=== PATIENT | female | born 1990 | race Hispanic/Latino ===

== ENCOUNTER 2017-11-28 09:37 | Emergency (ER) | payer OTHER ==
[~2017-11-28] VITALS: Ht 152.4 cm; Wt 63.1 kg
[2017-11-28 10:09] LABS: HEMOGLOBIN 14.3 G/DL (11.9-15.5); MCHC 34.9 G/DL (30.0-36.0); MCV 86.1 FL (83-99); NRBC (%) 0.2 /100 WBC (0-0); PLATELET COUNT 263 K/uL (156-360); RBC DIS.WIDTH-CV 12.8 % (11.8-14.6); RBC DIS.WIDTH-SD 40.3 % (39-53); RED BLOOD COUNT 4.76 M/uL (3.80-5.20); WHITE BLOOD COUNT 9.6 K/uL (4.1-10.2)
[2017-11-28 10:18] LABS: ALBUMIN 4.3 g/dL (3.2-4.8); CHLORIDE 105 mEq/L (99-109); SODIUM 136 mEq/L (136-147)
[2017-11-28 10:21] LABS: GLUCOSE 82 mg/dL (70-99); TOTAL PROTEIN 7.7 g/dL (6.4-8.3)
[2017-11-28 10:22] LABS: TOTAL BILIRUBIN 0.3 mg/dL (0.0-1.0)
[2017-11-28 10:24] LABS: ALKALINE PHOSPHATASE 82 IU/L (3-129); CREATININE 0.7 mg/dL (0.6-1.3)
[2017-11-28 10:25] LABS: UREA NITROGEN (BUN) 6 mg/dL (9-23)
[2017-11-28 10:26] LABS: AST (GOT) 21 IU/L (2-34)
[2017-11-28 10:27] LABS: ALT (GPT) 18 IU/L (3-49)
[2017-11-28 10:28] LABS: GFR ESTIMATE (CALCULATED) > 59 mL/min/
[2017-11-28 10:50] LABS: QUANTITATIVE HCG 109367.6 MIU/ML
[2017-11-28 10:53] LABS: APPEARANCE TURBID ((CLEAR)); BILIRUBIN NEGATIVE; BLOOD NEGATIVE; COLOR YELLOW ((YELLOW)); GLUCOSE (STRIP) NEGATIVE; KETONES NEGATIVE; LEUKOCYTES NEGATIVE; NITRITE NEGATIVE; PROTEIN (STRIP) NEGATIVE; SPECIFIC GRAVITY 1.017 (1.000-1.030); UROBILINOGEN 0.2 MG/DL (0.2-1.0)
[2017-11-28] MEDS ORDERED: PRENATAL TABLE1 EAC3 PO (11:00)
[2017-11-28 11:12] LABS: BACTERIA 2+ /HPF; EPITHELIAL CELLS 1+ /HPF; MUCUS NONE SEEN /LPF; RED BLOOD CELLS 0-5 /HPF (0-5); UCUL ADDED? YES; WHITE BLOOD CELLS 0-5 /HPF (0-5)
[2017-11-28 11:36] LABS: LIPASE 7 U/L (1.0-51.0)
[2017-11-28] MEDS ORDERED: ZANTAC150 MG PO (13:48)
[2017-11-28] MEDS ORDERED: ZOFRAN ODT4 MG PO (13:48)
[2017-11-28 13:56] VITALS: BP 109/58
== END 2017-11-28 13:57 | disposition home or self-care (01) ==
LOC: EME 09:37
DX: O26.891 Other specified pregnancy related conditions, first trimester (principal); K92.2 Gastrointestinal hemorrhage, unspecified; R10.9 Unspecified abdominal pain; Z3A.10 10 weeks gestation of pregnancy
CPT/HCPCS: 76705; 76801; 80053; 81003; 83690; 84702; 85027; 87086; 99281; 99284

== ENCOUNTER 2018-05-17 12:19 | Outpatient (CLI) | payer OTHER ==
[~2018-05-17 12:19] MED LIST: PRENATAL TABLE1 EAC3 PO; ZANTAC150 MG PO; ZOFRAN ODT4 MG PO
[2018-05-17 12:37] VITALS: BP 112/73
== END 2018-05-17 13:15 | disposition home or self-care (01) ==
LOC: LDRP-OP 12:19 → 2WEST 12:20
DX: O36.8130 Decreased fetal movements, third trimester, not applicable or unspecified (principal); O60.03 Preterm labor without delivery, third trimester; Z3A.34 34 weeks gestation of pregnancy
CPT/HCPCS: 59025; G0378